=== PATIENT | male | born 1945 | race Caucasian/White ===

== ENCOUNTER → 2017-01-05 | Day surgery (SDC) | payer MEDICARE ==
[~2017-01-05] VITALS: Ht 177.8 cm; Wt 114.0 kg
[~2017-01-05] MED LIST: AMIO200T PO; AMLO10TA2 PO; ASPI81CH37 CHEW; ATOR1TAB18 PO; BRIL90TA PO; CILO100T PO; FISHCAP4 PO; GABA300C5 PO; GLIM2TAB PO; ISOS20TA PO; METO-309 PO; NITR1SUB3 SL; OMEP20TA PO; OXYB5TAB10 PO; PROPOFOL 200 MG/20 ML AMP IV ONE; RAMI2.5C PO; RANO500 PO; SITA1TAB2 PO; SODIUM CHLORID 0.9% 500 ML INJ 500 ML IV ONE; SODIUM CHLORIDE 0.9% FLUSH 10 ML FLUSH IVF PRN
[2017-01-05 11:57] VITALS: BP 128/75; PULSE 54; RESP 18; TEMP 97.3; O2SAT 97
--- NOTE | 2017-01-05 13:08 | PD ---
HPI Chief Complaint: GI Complaint Time Seen by Provider: 12:05 Travel History International Travel<30 days: No Contact w/Intl Traveler<30days: No Traveled to known affect area: No History of Present Illness HPI 71 y/o male presents with unable to eat or drink after eating steak last night. He notes that given it was tough he didn't get small enough. He denies other complaints. He notes that 5 years ago he had this issue and had to have a scope and stretching. He denies a gi specialist here. quality is unable to keep down liquids. severity is worsening. duration since last night PFSH Past Medical History Hx Anticoagulant Therapy: Yes Cardiovascular Problems: Yes High Cholesterol: Yes Chest Pain: Yes Cerebrovascular Accident: Yes Coronary Artery Disease: Yes Diabetes: Yes Patient Takes Glucophage: No Diminished Hearing: No GERD: Yes Hypertension: Yes Medical other: Yes (kidney function decreased) Tetanus Vaccination: < 5 Years Influenza Vaccination: Yes Past Surgical History Appendectomy: Yes Cardiac Surgery: Yes (triple bypass, multiple stents, carotid endartectomy) Thoracic Surgery: Yes Tonsillectomy: Yes Other Surgery: Yes (femoral artery stents) Social History Alcohol Use: No Tobacco Use: No Substance Use: No Allergies-Medications (Allergen,Severity, Reaction): Coded Allergies: No Known Allergies (Unverified , 01/05/17) Reported Meds & Prescriptions Reported Meds & Active Scripts Active Reported Fish Oil + D3 (Fish Oil-Cholecalciferol) 1,200-1,000 Mg-Unit Cap 1 Cap PO DAILY Aspirin Low Dose (Aspirin) 81 Mg Chew 352 Mg CHEW DAILY Atorvastatin (Atorvastatin Calcium) 80 Mg Tab 80 Mg PO DAILY Januvia (Sitagliptin Phosphate) 100 Mg Tab 100 Mg PO DAILY Amiodarone (Amiodarone HCl) 200 Mg Tab 200 Mg PO DAILY Omeprazole 20 Mg Tab 20 Mg PO BID Gabapentin 300 Mg Cap 300 Mg PO DAILY Nitroglycerin SL (Nitroglycerin) 0.4 Mg Subl 0.4 Mg SL DIRECTED PRN ONE TABLET UNDER THE TONGUE NEEDED FOR CHEST PAIN, MAY REPEAT EVERY FIVE MINUTES FOR A TOTAL OF 3 DOSES OR CALL 911 IF NO RELIEF Brilinta (Ticagrelor) 90 Mg Tab 90 Mg PO BID Glimepiride 2 Mg Tab 2 Mg PO DAILY Take with breakfast or first main meal Cilostazol 100 Mg Tab 100 Mg PO BID Ranexa ER 12 HR (Ranolazine) 500 Mg Tab 500 Mg PO BID Amlodipine (Amlodipine Besylate) 10 Mg Tab 10 Mg PO DAILY Ramipril 2.5 Mg Cap 2.5 Mg PO DAILY Ditropan (Oxybutynin Chloride) 5 Mg Tab 5 Mg PO Q8HR Isosorbide Mononitrate 20 Mg Tab 30 Mg PO DAILY Take 2 doses 7 hours apart. Lopressor (Metoprolol Tartrate) 50 Mg Tab 50 Mg PO BID Review of Systems Except as stated in HPI: all other systems reviewed are Neg Physical Exam Narrative GENERAL: Well-nourished, well-developed patient. SKIN: Warm and dry. HEAD: Normocephalic and atraumatic. EYES: No injection or drainage. ENT: No nasal drainage noted. NECK: Supple, trachea midline. CARDIOVASCULAR: Regular rate and rhythm RESPIRATORY: no increased effort. No accessory muscle use. GASTROINTESTINAL: Abdomen soft, non-tender, nondistended. NEUROLOGICAL: Awake and alert. moves all extremities. Normal speech. Data Data Last Documented VS Vital Signs Date Time Temp Pulse Resp B/P (MAP) Pulse Ox O2 Delivery O2 Flow Rate FiO2 01/05/17 11:57 97.3 54 18 128/75 (92) 97 Orders Orders Iv Access Insert/Monitor (01/05/17 12:08) Electrocardiogram (01/05/17 12:23) Complete Blood Count With Diff (01/05/17 12:23) Prothrombin Time / Inr (Pt) (01/05/17 12:23) Act Partial Throm Time (Ptt) (01/05/17 12:23) Chest, Single Ap (01/05/17 12:23) Oximetry (01/05/17 12:23) Ecg Monitoring (01/05/17 12:23) Sodium Chloride 0.9% Flush (Ns Flush) (01/05/17 12:30) Basic Metabolic Panel (Bmp) (01/05/17 12:23) Diet Npo (01/05/17 Lunch) Consult Gastroenterology (01/05/17 ) Admit Order (Ed Use Only) (01/05/17 12:32) MDM Medical Decision Making Medical Screen Exam Complete: Yes Emergency Medical Condition: Yes Medical Record Reviewed: Yes (no records here) Interpretation(s) EKG is sinus bradycardia at 50, QTC 464, no STEMI criteria Differential Diagnosis food impaction, ulcer, stricture... Narrative Course patient with small sip of water after a couple seconds sips it back up and cant keep it down, will discuss with gi patient updated and agrees to scope, will check labs for preop Physician Communication Physician Communication dr rosa states will discuss with or about scope dr rosa states will take for scope at 2 and check labs, ekg, cxr for pre-op Diagnosis Primary Impression: Esophageal obstruction due to food impaction Tara Fernandez MD Jan 05, 2017 13:08
[2017-01-05 13:15] LABS: AUTOMATED NEUTROPHIL # 5.2 TH/MM3 (1.8-7.7); BASOPHIL % 0.4 % (0.0-2.0); EOSINOPHIL # 0.5 TH/MM3 (0-0.4); EOSINOPHIL % 5.5 % (0.0-4.0); HEMATOCRIT 41.7 % (39.0-51.0); HEMO FLAGS DIFF FINAL; LYMPH % 20.6 % (9.0-44.0); LYMPHOCYTE # 1.8 TH/MM3 (1.0-4.8); MEAN CELL VOLUME 88.8 FL (80.0-100.0); MEAN CORPUSCULAR HEMOGLOBIN 30.1 PG (27.0-34.0); MEAN CORPUSCULAR HGB CONC 33.9 % (32.0-36.0); MONO % 12.3 % (0.0-8.0); NEUT % 61.2 % (16.0-70.0); PLATELET COUNT 229 TH/MM3 (150-450); RED BLOOD COUNT 4.69 MIL/MM3 (4.50-5.90); RED CELL DISTRIBUTION WIDTH 13.3 % (11.6-17.2); WHITE BLOOD COUNT 8.6 TH/MM3 (4.0-11.0)
[2017-01-05 13:24] LABS: POTASSIUM 4.6 MEQ/L (3.5-5.1)
--- NOTE | 2017-01-05 13:26 | RADRPT ---
EXAM DATE/TIME: 01/05/2017 13:13 [facility] COMPARISON: No previous studies available for comparison. INDICATIONS : Chest pain, while eating last night food got stuck. MEDICAL HISTORY : Hypertension. Cardiovascular disease. Diabetes mellitus type II. GERD SURGICAL HISTORY : CABG. Carotid endarterectomy. Coronary artery stent. esophageal dilatation ENCOUNTER: Initial ACUITY: 2 days PAIN SCORE: 3/10 LOCATION: Bilateral chest FINDINGS: Cardiac silhouette is mildly enlarged. There is mild central vascular congestion. No evidence of alve olar consolidation or significant effusion. CONCLUSION: Mild cardiac enlargement and vascular congestion Ady Orozco MD on January 05, 2017 at 13:23 Board Certified Radiologist. This report was verified electronically.
[2017-01-05 13:38] VITALS: O2SAT 97
[2017-01-05 13:41] VITALS: BP 184/95; PULSE 58; RESP 18; TEMP 97.8; O2SAT 98
[2017-01-05 14:20] LABS: APTT (PATIENT) 25.5 SEC (24.3-30.1); PROTHROMBIN TIME - PATIENT 10.7 SEC (9.8-11.6)
--- NOTE | 2017-01-05 15:07 | GIPROC ---
[facility] [address] [place] [address], [id number] EGD PROCEDURE REPORT EXAM DATE: 01/05/2017 PATIENT NAME: Manolo Kaur MR #: [id number] BIRTHDATE: 1945 ATTENDING: Lg Bah MD ORDER #: [id number] KINDERGARTNER: oJsi Wells RN STATUS: outpatient INDICATIONS: The patient is a 71 yr old male here for an EGD due to dysphagia and foreign body removal from esophagus PROCEDURE PERFORMED: EGD w/ fb removal MEDICATIONS: None and Per Anesthesia. TOPICAL ANESTHETIC: CONSENT: The patient understands the risks and benefits of the procedure and understands that these risks include, but are not limited to: sedation, allergic reaction, infection, perforation and/or bleeding. Alternative means of evaluation and treatment include, among others: physical exam, x-rays, and/or surgical intervention. The patient elects to proceed with this endoscopic procedure. medical equipment was checked for proper function. Hand hygiene and appropriate measures for infection prevention was taken. After the risks, benefits and alternatives of the procedure were thoroughly explained, Informed consent was verified, confirmed and timeout was successfully executed by the treatment team. The patient was anesthetized with topical anesthesia and the Pentax [id number] endoscope was introduced through the mouth and advanced to the second portion of the duodenum. Retroflexed views revealed no abnormalities The gastroscope was then slowly withdrawn and removed. ESOPHAGUS: There was LA Class B esophagitis noted. Esophagus full of food. Distal tightening. Food removed through the mouth and pushed into the stomach. STOMACH: There was erythematous moderate gastritis in the gastric antrum. DUODENUM: The duodenal mucosa appeared normal. ADVERSE EVENTS: There were no complications. IMPRESSIONS: 1. There was LA Class B esophagitis noted 2. There was erythematous gastritis in the gastric antrum 3. Normal duodenal mucosa 4. Retroflexed views revealed no abnormalities RECOMMENDATIONS: 1. Anti-reflux regimen 2. Start PPI 3. Avoid NSAIDS 4. Full liquid diet x 24 hours. [id number] OTC daily. PATIENT CONDITION: stable DISPOSITION: Home REPEAT EXAM: Return 3 months EGD with dilatation Lg Bah MD eSigned: Lg Bah MD 01/05/2017 3:07 PM cc: PATIENT NAME: Manolo Kaur Dorian MR#: [id number]
[2017-01-05 15:17] VITALS: TEMP 97.5
[2017-01-05 15:45] VITALS: BP 142/83; PULSE 60; RESP 16; O2SAT 97
--- NOTE | 2017-01-06 08:35 | MB ---
cc: RAF PEREZ M.D., CINDY M. MD DATE OF CONSULTATION 01/05/[address] Tara Fernandez. REASON FOR CONSULTATION Dysphagia, esophageal foreign body. HISTORY The patient states that he was eating steak earlier and this got stuck in his esophagus. The patient states that he is unable to swallow any liquids since yesterday. He says this [place] about [place] which time he had an endoscopy and he was told he had a tightening in the lower esophagus. He states that the steak was not well cooked and he ate it quickly. PAST MEDICAL HISTORY 1. Coronary artery disease. 2. Elevated cholesterol. 3. Diabetes. 4. Reflux. 5. Kidney function tests. PAST SURGICAL HISTORY 1. Appendectomy. 2. Triple bypass. 3. Endarterectomy. 4. Tonsillectomy. 5. EGD in the past. SOCIAL HISTORY No tobacco, no alcohol. ALLERGIES NONE DOCUMENTED. MEDICATIONS Current medications: 1. Fish oil. 2. Atorvastatin. 3. Januvia. 4. Amiodarone. 5. Omeprazole. 6. Gabapentin. 7. Nitroglycerine. 8. Brilinta. 9. Glimepiride. 10. Ranexa. 11. Cilostazol. 12. Amlodipine. 13. . 14. Ditropan. 15. Isosorbide. 16. Lopressor. REVIEW OF SYSTEMS The patient unable to swallow at this time. He is spitting up sputum. PHYSICAL EXAMINATION GENERAL: Reveals a well-nourished man in no apparent distress. VITAL SIGNS: Stable. HEAD AND NECK: Anicteric sclerae. CHEST: Bilateral air entry. ABDOMEN: Obese. Soft and nontender. No hepatosplenomegaly. Bowel sounds are present. CENTRAL NERVOUS SYSTEM: Examination is nonfocal. RECTAL: Examination deferred at this time. LABORATORY DATA Labs reveal a white cell count of 8.6, hemoglobin 14.1, creatinine 1.60. INR is 1.0. IMPRESSION Esophageal foreign body, dysphagia. RECOMMENDATIONS EGD under general anesthesia planned today. Risks, limitations have been discussed with him in detail. Further recommendations to follow after the endoscopy. Leave n.p.o. at this time. The patient advised to chew his food well and drink plenty of liquid with the food. Thank you for this referral. MD CEE Thakkar /3:15 PM /8:28 AM
--- NOTE | 2017-01-06 13:41 | EKG ---
Date Performed: 01/05/2017 Time Performed: 12:30:16 PTAGE: 71 years EKG: SINUS BRADYCARDIA INCOMPLETE RIGHT BUNDLE BRANCH BLOCK PROLONGED QT INTERVAL ABNORMAL ECG NO PREVIOUS TRACING DOCTOR: Alfred Graf Interpretating Date/Time 01/06/2017 13:38:11
== END | disposition home or self-care (01) ==
LOC: PHED 11:43 → PHSDC 12:32
PROVIDERS: ATTEND Internal Medicine Gastroenterology
DX: T18.128A Food in esophagus causing other injury, initial encounter (principal); X58.XXXA Exposure to other specified factors, initial encounter; K20.9 Esophagitis, unspecified; K29.70 Gastritis, unspecified, without bleeding; R00.1 Bradycardia, unspecified; I45.10 Unspecified right bundle-branch block; I45.81 Long QT syndrome; I10 Essential (primary) hypertension; I25.10 Atherosclerotic heart disease of native coronary artery without angina pectoris; K21.9 Gastro-esophageal reflux disease without esophagitis; E11.9 Type 2 diabetes mellitus without complications; I51.7 Cardiomegaly; E78.00 Pure hypercholesterolemia, unspecified; Z95.1 Presence of aortocoronary bypass graft; Z95.5 Presence of coronary angioplasty implant and graft; Z79.84 Long term (current) use of oral hypoglycemic drugs; Z79.82 Long term (current) use of aspirin; Z79.899 Other long term (current) drug therapy
CPT/HCPCS: 71010; 80048; 85025; 85610; 85730; 93005; 99285

== ENCOUNTER 2017-05-16 23:22 | Emergency (ER) | payer MEDICARE ==
[~2017-05-16] VITALS: Ht 177.8 cm; Wt 121.3 kg
[~2017-05-16 23:22] MED LIST changes: -ASPI81CH37 CHEW; +ASPI81CH6 CHEW; -ATOR1TAB18 PO; +ATOR80TA45 PO; -OMEP20TA PO; +OMEP20TA93 PO; -OXYB5TAB10 PO; +OXYB5TAB8 PO; -PROPOFOL 200 MG/20 ML AMP IV ONE; -SODIUM CHLORID 0.9% 500 ML INJ 500 ML IV ONE; -SODIUM CHLORIDE 0.9% FLUSH 10 ML FLUSH IVF PRN
[2017-05-16 23:44] VITALS: BP 159/71; PULSE 75; RESP 22; TEMP 99; O2SAT 95
[2017-05-17] MEDS ORDERED: PANT40TA3 PO (00:10)
[2017-05-17] MEDS ORDERED: SODIUM CHLORIDE 0.9% FLUSH 10 ML FLUSH IVF PRN (01:15)
--- NOTE | 2017-05-17 01:20 | PD ---
HPI Chief Complaint: Respiratory Symptoms Time Seen by Provider: 01:10 Travel History International Travel<30 days: No Contact w/Intl Traveler<30days: No Traveled to known affect area: No History of Present Illness HPI The patient is a 72-year-old male that complains of cough and congestion for 3 weeks. He denies any fever. He does have shortness of breath and he does have wheezing. He does have diarrhea which is so bad he has to be careful when he coughs. He denies any nausea or vomiting. He does have a history of metformin controlled diabetes. He denies any chest pain. PFSH Past Medical History Hx Anticoagulant Therapy: Yes Cardiovascular Problems: Yes High Cholesterol: Yes Chest Pain: Yes Cerebrovascular Accident: Yes Coronary Artery Disease: Yes Diabetes: Yes Diminished Hearing: No GERD: Yes Hypertension: Yes Past Surgical History Appendectomy: Yes Cardiac Surgery: Yes (triple bypass, multiple stents, carotid endartectomy) Thoracic Surgery: Yes Tonsillectomy: Yes Other Surgery: Yes (femoral artery stents) Social History Alcohol Use: No Tobacco Use: No Substance Use: No Allergies-Medications (Allergen,Severity, Reaction): Coded Allergies: No Known Allergies (Unverified Adverse Reaction, Unknown, 05/16/17) Reported Meds & Prescriptions Reported Meds & Active Scripts Active Reported Fish Oil + D3 (Fish Oil-Cholecalciferol) 1,200-1,000 Mg-Unit Cap 1 Cap PO DAILY Aspirin Low Dose (Aspirin) 81 Mg Chew 352 Mg CHEW DAILY Atorvastatin (Atorvastatin Calcium) 80 Mg Tab 80 Mg PO DAILY Januvia (Sitagliptin Phosphate) 100 Mg Tab 100 Mg PO DAILY Amiodarone (Amiodarone HCl) 200 Mg Tab 200 Mg PO DAILY Omeprazole 20 Mg Tab 20 Mg PO BID Gabapentin 300 Mg Cap 300 Mg PO DAILY Nitroglycerin SL (Nitroglycerin) 0.4 Mg Subl 0.4 Mg SL DIRECTED PRN ONE TABLET UNDER THE TONGUE NEEDED FOR CHEST PAIN, MAY REPEAT EVERY FIVE MINUTES FOR A TOTAL OF 3 DOSES OR CALL 911 IF NO RELIEF Brilinta (Ticagrelor) 90 Mg Tab 90 Mg PO BID Glimepiride 2 Mg Tab 2 Mg PO DAILY Take with breakfast or first main meal Cilostazol 100 Mg Tab 100 Mg PO BID Ranexa ER 12 HR (Ranolazine) 500 Mg Tab 500 Mg PO BID Amlodipine (Amlodipine Besylate) 10 Mg Tab 10 Mg PO DAILY Ramipril 2.5 Mg Cap 2.5 Mg PO DAILY Ditropan (Oxybutynin Chloride) 5 Mg Tab 5 Mg PO Q8HR Isosorbide Mononitrate 20 Mg Tab 30 Mg PO DAILY Take 2 doses 7 hours apart. Lopressor (Metoprolol Tartrate) 50 Mg Tab 50 Mg PO BID Pantoprazole (Pantoprazole Sodium) 40 Mg Tab 40 Mg PO DAILY Review of Systems Except as stated in HPI: all other systems reviewed are Neg Physical Exam Narrative GENERAL: The patient is alert, oriented 3 and slight respiratory distress. His vital signs show blood pressure 129/71 but are otherwise normal. SKIN: Focused skin assessment warm/dry. HEAD: Atraumatic. Normocephalic. EYES: Pupils equal and round. No scleral icterus. No injection or drainage. ENT: No nasal bleeding or discharge. Mucous membranes pink and moist. NECK: Trachea midline. No JVD. CARDIOVASCULAR: Regular rate and rhythm. No murmur appreciated. RESPIRATORY: No accessory muscle use. Bilateral wheezes are heard in all lung west. Breath sounds equal bilaterally. GASTROINTESTINAL: Abdomen soft, non-tender, nondistended. Hepatic and splenic margins not palpable. MUSCULOSKELETAL: No obvious deformities. No clubbing. No cyanosis. No edema. NEUROLOGICAL: Awake and alert. No obvious cranial nerve deficits. Motor grossly within normal limits. Normal speech. PSYCHIATRIC: Appropriate mood and affect; insight and judgment normal. Data Data Last Documented VS Vital Signs Date Time Temp Pulse Resp B/P (MAP) Pulse Ox O2 Delivery O2 Flow Rate FiO2 05/17/17 01:33 18 95 Room Air 05/16/17 23:44 99.0 75 159/71 (100) Orders Orders B-Type Natriuretic Peptide (05/17/17 01:15) Complete Blood Count With Diff (05/17/17 01:15) Comprehensive Metabolic Panel (05/17/17 01:15) Magnesium (Mg) (05/17/17 01:15) Troponin I (05/17/17 01:15) Arterial Blood Gas (Abg) (05/17/17 01:15) Urinalysis - C+S If Indicated (05/17/17 01:15) Iv Access Insert/Monitor (05/17/17 01:15) Electrocardiogram (05/17/17 01:15) Ecg Monitoring (05/17/17 01:15) Oximetry (05/17/17 01:15) Oxygen Administration (05/17/17 01:15) Chest, Pa & Lat (05/17/17 01:15) Sodium Chloride 0.9% Flush (Ns Flush) (05/17/17 01:15) Methylprednisolone So Succ Inj (Solumedr (05/17/17 01:30) Albuterol-Ipratropium Neb (Duoneb Neb) (05/17/17 01:30) Labs Laboratory Tests Test 05/17/17 01:31 05/17/17 01:33 05/17/17 02:54 White Blood Count 4.9 TH/MM3 Red Blood Count 4.23 MIL/MM3 Hemoglobin 13.0 GM/DL Hematocrit 39.4 % Mean Corpuscular Volume 93.2 FL Mean Corpuscular Hemoglobin 30.7 PG Mean Corpuscular Hemoglobin Concent 32.9 % Red Cell Distribution Width 13.5 % Platelet Count 173 TH/MM3 Mean Platelet Volume 8.8 FL Neutrophils (%) (Auto) 55.7 % Lymphocytes (%) (Auto) 29.6 % Monocytes (%) (Auto) 10.7 % Eosinophils (%) (Auto) 3.8 % Basophils (%) (Auto) 0.2 % Neutrophils # (Auto) 2.7 TH/MM3 Lymphocytes # (Auto) 1.5 TH/MM3 Monocytes # (Auto) 0.5 TH/MM3 Eosinophils # (Auto) 0.2 TH/MM3 Basophils # (Auto) 0.0 TH/MM3 CBC Comment DIFF FINAL Differential Comment Blood Urea Nitrogen 28 MG/DL Creatinine 1.60 MG/DL Random Glucose 156 MG/DL Total Protein 7.2 GM/DL Albumin 3.4 GM/DL Calcium Level 8.4 MG/DL Magnesium Level 2.0 MG/DL Alkaline Phosphatase 143 U/L Aspartate Amino Transf (AST/SGOT) 49 U/L Alanine Aminotransferase (ALT/SGPT) 87 U/L Total Bilirubin 0.5 MG/DL Sodium Level 140 MEQ/L Potassium Level 4.2 MEQ/L Chloride Level 107 MEQ/L Carbon Dioxide Level 21.5 MEQ/L Anion Gap 12 MEQ/L Estimat Glomerular Filtration Rate 43 ML/MIN Troponin I LESS THAN 0.02 NG/ML B-Type Natriuretic Peptide 46 PG/ML Blood Gas Puncture Site RT BRACHIAL Blood Gas Patient Temperature 98.6 Blood Gas HCO3 22 mmol/L Blood Gas Base Excess -2.4 mmol/L Blood Gas Oxygen Saturation 94 % Arterial Blood pH 7.41 Arterial Blood Partial Pressure CO2 35 mmHG Arterial Blood Partial Pressure O2 82 mmHG Arterial Blood Oxygen Content 17.4 Vol % Arterial Blood Carboxyhemoglobin 0.0 % Arterial Blood Methemoglobin 0.8 % Blood Gas Hemoglobin 13.2 G/DL Oxygen Delivery Device ROOM AIR Blood Gas Inspired Oxygen 21 % Urine Color YELLOW Urine Turbidity CLEAR Urine pH 5.5 Urine Specific [place] GREATER THAN 1.035 Urine Protein NEG mg/dL Urine Glucose (UA) NEG mg/dL Urine Ketones NEG mg/dL Urine Occult Blood NEG Urine Nitrite NEG Urine Bilirubin NEG Urine Leukocyte Esterase NEG Urine WBC 0-2 /hpf Urine Squamous Epithelial Cells 0-5 /hpf Urine Mucus OCC /lpf Microscopic Urinalysis Comment CULT NOT INDICATED MDM Medical Decision Making Medical Screen Exam Complete: Yes Emergency Medical Condition: Yes Medical Record Reviewed: Yes Interpretation(s) The PA and lateral chest x-ray shows no acute abnormality. Numerous broken sternal wires are noted. The CBC is normal. The blood gases show pH 7.41, CO2 35, PO2 82 with O2 saturation 94%. The complete metabolic profile shows a BUN of 28, creatinine 1.6, GFR 43, glucose 156, AST of 49, ALT of 87 and alkaline phosphatase 143 but the rest of the complete metabolic profile is normal. The troponin I and BNP are normal. The urine shows specific gravity greater than 1.035 but is otherwise normal and culture is not indicated. The EKG shows sinus rhythm with a rate of [address] elevation or depression. Differential Diagnosis Acute coronary syndrome-unlikely, congestive heart failure-unlikely, flu syndrome, bronchitis with bronchospasm, pneumonia, hypoxemia Narrative Course The patient has bronchitis with bronchospasm. He got good relief with the DuoNeb treatments. He will be given an albuterol HFA as well as 5 days of prednisone. He needs to follow-up with his primary care physician this week. Diagnosis Primary Impression: Bronchitis with bronchospasm Med/Other Pt SpecificInfo: Prescription(s) given Disposition: DISCHARGE HOME Condition: Stable Parmjit Gutierrez MD May 17, 2017 01:20
[2017-05-17] MEDS ORDERED: methylPREDNISolone SOD SUCC 125 MG/2 ML VIAL IV PUSH ONE (01:30)
[2017-05-17 01:33] VITALS: RESP 18; O2SAT 95
[2017-05-17] MEDS: RESP: ALBUTEROL 2.5 MG/IPRATROPIUM 0.5 MG NEB (SCH) INH ×3 (01:34→02:01)
[2017-05-17 01:38] LABS: AUTOMATED NEUTROPHIL # 2.7 TH/MM3 (1.8-7.7); BASOPHIL % 0.2 % (0.0-2.0); EOSINOPHIL # 0.2 TH/MM3 (0-0.4); EOSINOPHIL % 3.8 % (0.0-4.0); HEMATOCRIT 39.4 % (39.0-51.0); LYMPH % 29.6 % (9.0-44.0); LYMPHOCYTE # 1.5 TH/MM3 (1.0-4.8); MEAN CELL VOLUME 93.2 FL (80.0-100.0); MEAN CORPUSCULAR HEMOGLOBIN 30.7 PG (27.0-34.0); MEAN CORPUSCULAR HGB CONC 32.9 % (32.0-36.0); MEAN PLATELET VOLUME 8.8 FL (7.0-11.0); MONO % 10.7 % (0.0-8.0); MONOCYTE # 0.5 TH/MM3 (0-0.9); NEUT % 55.7 % (16.0-70.0); PLATELET COUNT 173 TH/MM3 (150-450); RED BLOOD COUNT 4.23 MIL/MM3 (4.50-5.90); RED CELL DISTRIBUTION WIDTH 13.5 % (11.6-17.2); WHITE BLOOD COUNT 4.9 TH/MM3 (4.0-11.0)
[2017-05-17 01:49] LABS: CHLORIDE 107 MEQ/L (98-107); SODIUM (NA) 140 MEQ/L (136-145)
--- NOTE | 2017-05-17 01:49 | RADRPT ---
EXAM DATE/TIME: 05/17/2017 01:20 [facility] COMPARISON: No previous studies available for comparison. INDICATIONS : Cough and congestion. MEDICAL HISTORY : Hypertension. Cardiovascular disease. Diabetes mellitus type II. GERD. SURGICAL HISTORY : CABG. Carotid endarterectomy. Coronary artery stent. esophageal dilatation ENCOUNTER: Initial ACUITY: 3 weeks PAIN SCORE: 0/10 LOCATION: Bilateral chest FINDINGS: The heart size is normal. The lungs are grossly clear. No effusion is seen. The patient is status pos t sternotomy. The sternal wires are all broken. Wires are seen in the more superficial soft tissues o es the sternum. There are old right-sided rib fracture seen at the third and fourth right ribs. CONCLUSION: 1. No acute abnormality seen. 2. Numerous broken sternal wires. Ady Aguirre MD on May 17, 2017 at 1:46 Board Certified Radiologist. This report was verified electronically.
[2017-05-17 01:53] LABS: CALCIUM 8.4 MG/DL (8.5-10.1)
[2017-05-17 01:54] LABS: ALBUMIN 3.4 GM/DL (3.4-5.0); BICARBONATE 21.5 MEQ/L (21.0-32.0); BLOOD UREA NITROGEN 28 MG/DL (7-18); GLUCOSE,RANDOM 156 MG/DL (74-106)
[2017-05-17 01:57] LABS: ALT (GPT) 87 U/L (12-78); AST (GOT) 49 U/L (15-37); GLOMERULAR FILTRATION RATE 43 ML/MIN (>89)
[2017-05-17 01:59] LABS: TOTAL BILIRUBIN ADULT 0.5 MG/DL (0.2-1.0); TOTAL PROTEIN 7.2 GM/DL (6.4-8.2)
[2017-05-17 02:00] LABS: ALKALINE PHOSPHATASE 143 U/L (45-117)
[2017-05-17 02:02] LABS: TROPONIN I LESS THAN 0.02 NG/ML (0.02-0.05)
[2017-05-17 03:01] LABS: BILIRUBIN, URINE NEG (NEG); BLOOD, URINE NEG (NEG); GLUCOSE,URINE NEG (NEG); KETONE, URINE NEG (NEG); NITRITE,URINE NEG (NEG); PH, URINE 5.5 (5.0-8.5); URINE LEUKOCYTE ESTERASE NEG (NEG)
[2017-05-17 03:08] LABS: URINE COLOR YELLOW (YELLW/STRAW)
[2017-05-17 03:09] LABS: MUCUS URINE OCC /lpf (OCC); SQUAMOUS EPITHELIAL CELL URINE 0-5 /hpf (0-5)
[2017-05-17 03:10] LABS: WBC, URINE 0-2 /hpf (0-5)
[2017-05-17] MEDS ORDERED: PRED50 PO (03:58)
[2017-05-17] MEDS ORDERED: ALBUAER3 INH (03:58)
[2017-05-17 04:10] VITALS: BP 127/64; PULSE 78; RESP 16; O2SAT 95
--- NOTE | 2017-05-17 14:59 | EKG ---
Date Performed: 05/17/2017 Time Performed: 02:10:24 PTAGE: 72 years EKG: Sinus rhythm INCOMPLETE RIGHT BUNDLE BRANCH BLOCK POSSIBLE ANTERIOR MYOCARDIAL INFARCTION ABNORMAL ECG PREVIOUS TRACING : 01/05/2017 12.30 Compared to prior study, poor R-wave progression is more no ticeable. Clinical correlation is recommended. DOCTOR: Bubba Garcia Interpretating Date/Time 05/17/2017 14:57:52
== END 2017-05-17 04:23 | disposition home or self-care (01) ==
LOC: PHED 23:22
DX: J20.9 Acute bronchitis, unspecified (principal); R94.31 Abnormal electrocardiogram [ECG] [EKG]; I25.10 Atherosclerotic heart disease of native coronary artery without angina pectoris; E78.00 Pure hypercholesterolemia, unspecified; E11.9 Type 2 diabetes mellitus without complications; K21.9 Gastro-esophageal reflux disease without esophagitis; I10 Essential (primary) hypertension; Z79.84 Long term (current) use of oral hypoglycemic drugs; Z79.01 Long term (current) use of anticoagulants
CPT/HCPCS: 36600; 71046; 80053; 81001; 82805; 83735; 83880; 84484; 85025; 93005; 94640; 94664; 96374; 99285; J2930

== ENCOUNTER → 2017-07-21 | Outpatient (CLI) | payer MEDICARE ==
[~2017-07-21] VITALS: Ht 177.8 cm; Wt 118.9 kg
[~2017-07-21] MED LIST changes: +ALBUAER3 INH; +CHLORHEXIDINE GLUCONATE 2 % 1 PACK (2 CLOTHS) TOPICAL PRN; +LACTATED RINGER'S 1000 ML IV PRN; +METOPROLOL TARTRATE 25 MG TAB PO PRN; -OMEP20TA93 PO; +PANT40TA3 PO; +POVIDONE IODINE 5% (ANTISEPSIS KIT) 4 APPLICATIONS EACH NARE PRN; +PROPOFOL 200 MG/20 ML AMP ONE; +SODIUM CHLORID 0.9% 500 ML IV PRN
--- NOTE | 2017-07-21 12:26 | GIPROC ---
[facility] [address] [facility]. [facility], [address] COLONOSCOPY PROCEDURE REPORT EXAM DATE: 07/21/2017 PATIENT NAME: Manolo Kaur MR #: [id number] BIRTHDATE: 1945 ENDOSCOPIST: Nichelle Pabon MD ORDER #: [id number] [facility] SPECIALIST: Kain Doan and Mari Willson STATUS: outpatient INDICATIONS: The patient is a 72 yr old male here for a colonoscopy due to history of colon polyps PROCEDURE PERFORMED: Colonoscopy with ablation Colonoscopy with polypectomy MEDICATIONS: Per Anesthesia and None. PREP QUALITY: fair PREP TYPE:Other: ESTIMATED BLOOD LOSS: None CONSENT: The patient understands the risks and benefits of the procedure and understands that these risks include, but are not limited to: sedation, allergic reaction, infection, perforation and/or bleeding. Alternative means of evaluation and treatment include, among others: physical exam, x-rays, and/or surgical intervention. The patient elects to proceed with this endoscopic procedure. medical equipment was checked for proper function. Hand hygiene and appropriate measures for infection prevention was taken. After the risks, benefits and alternatives of the procedure were thoroughly explained, Informed consent was verified, confirmed and timeout was successfully executed by the treatment team. A digital exam revealed external hemorrhoids The Pentax [id number] endoscope was introduced through the anus and advanced to the cecum, which was identified by both the appendix and ileocecal valve. The instrument was then slowly withdrawn as the colon was fully examined. COLON FINDINGS: Diverticulosis sigmoid,descending polyp sessile ascending colon-8 mm-hot snare polypectomy with complete removal polyp descending sessiletwo-5 mm each hot snare polypectomy with complete removal polyp sessile rectosigmoid-8 mm-hot snare polypectomy with complete removal multiple diminutive polyps in rectum-8 -s/p ablation using tip of snare 2. Retroflexed views revealed internal hemorrhoids 3. Retroflexed views revealed small internal hemorrhoids 4. Revealed external hemorrhoids RECOMMENDATIONS: RECALL: Nichelle Pabon MD eSigned: Nichelle Pabon MD 07/21/2017 12:26 PM cc: DOCUMENT ADDENDUM eSigned: Nichelle Pabon MD 07/21/2017 12:30 PM Reason for addendum: [ ] Correction of inaccurate information [ ] Recently acquired lab/pathology results [x] Additional information Comments: Reccomendation resume diet resume anticoagulation await pathology report high fiber diet fiber supplements Recall colonoscopy 3 years unless indicated otherwise PATIENT NAME: Manolo Kaur MR#: [id number]
--- NOTE | 2017-07-21 12:29 | GIPROC ---
[facility] [address] [facility]. [facility], [id number] EGD PROCEDURE REPORT EXAM DATE: 07/21/2017 PATIENT NAME: Manolo Kaur MR #: [id number] BIRTHDATE: 1945 ATTENDING: Nichelle Pabon MD ORDER #: [id number] TOOLER: Kain Doan and Mari Willson STATUS: outpatient INDICATIONS: The patient is a 72 yr old male here for an EGD due to dysphagia, history of Juarez's PROCEDURE PERFORMED: EGD w/ biopsy MEDICATIONS: Per Anesthesia and None. TOPICAL ANESTHETIC: CONSENT: The patient understands the risks and benefits of the procedure and understands that these risks include, but are not limited to: sedation, allergic reaction, infection, perforation and/or bleeding. Alternative means of evaluation and treatment include, among others: physical exam, x-rays, and/or surgical intervention. The patient elects to proceed with this endoscopic procedure. medical equipment was checked for proper function. Hand hygiene and appropriate measures for infection prevention was taken. After the risks, benefits and alternatives of the procedure were thoroughly explained, Informed consent was verified, confirmed and timeout was successfully executed by the treatment team. The patient was anesthetized with topical anesthesia and the EC-[id number] (Pedi C) endoscope was introduced through the mouth and advanced to the second portion of the duodenum. Retroflexed views revealed a hiatal hernia The gastroscope was then slowly withdrawn and removed. 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 ADVERSE EVENTS: There were no complications. IMPRESSIONS: 1. 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 Retroflexed views revealed a hiatal hernia RECOMMENDATIONS: 1. Await biopsy results. Biopsy results will not be ready for 7-10 days. If you don't hear from us in two weeks, call our office for biopsy results. 2. Anti-reflux regimen 3. Continue PPI 4. Dilatations PRN PATIENT CONDITION: stable DISPOSITION: Home REPEAT EXAM: Return 2 years EGD Nichelle Bratu MD eSigned: Nichelle Pabon MD 07/21/2017 12:29 PM cc: PATIENT NAME: Manolo Kaur MR#: [id number]
[2017-07-21 13:00] VITALS: BP 137/77; PULSE 65; RESP 16; TEMP 96.5; O2SAT 100
== END ==
LOC: HEND 08:10
PROVIDERS: ATTEND Specialist
DX: Z12.11 Encounter for screening for malignant neoplasm of colon (principal); Z86.010 Personal history of colon polyps; K64.4 Residual hemorrhoidal skin tags; K57.30 Diverticulosis of large intestine without perforation or abscess without bleeding; D12.2 Benign neoplasm of ascending colon; D12.4 Benign neoplasm of descending colon; D12.7 Benign neoplasm of rectosigmoid junction; K62.1 Rectal polyp; K64.8 Other hemorrhoids; R13.10 Dysphagia, unspecified; K22.70 Barrett's esophagus without dysplasia; K44.9 Diaphragmatic hernia without obstruction or gangrene; K29.70 Gastritis, unspecified, without bleeding; K22.2 Esophageal obstruction
CPT/HCPCS: 00813; 43239; 43248; 45385; 45388; 88305; 88312; J7120

== ENCOUNTER → 2017-08-30 | Outpatient (CLI) | payer MEDICARE ==
[~2017-08-30] MED LIST changes: -CHLORHEXIDINE GLUCONATE 2 % 1 PACK (2 CLOTHS) TOPICAL PRN; -LACTATED RINGER'S 1000 ML IV PRN; -METOPROLOL TARTRATE 25 MG TAB PO PRN; -POVIDONE IODINE 5% (ANTISEPSIS KIT) 4 APPLICATIONS EACH NARE PRN; -PROPOFOL 200 MG/20 ML AMP ONE; -SODIUM CHLORID 0.9% 500 ML IV PRN
--- NOTE | 2017-08-31 11:03 | RSPPFT ---
DATE OF PROCEDURE: 08/30/17 COMMENTS: Spirometry shows FVC of 2.8 at 74% of predicted, FEV1 of 2.2 at 75%, FEV1/FVC ratio is normal. Flow is normal at FEF 25, FEF 50 and FEF 25-75. There is no response after bronchodilator treatment. Lung volumes show residual volume is normal. TLC is normal. Diffusion capacity is decreased. Flow volume loop indicates a normal pattern. Room air arterial blood gases show pH of 7.42, PCO2 of 36, PO2 of 90, BiCarb of 22 and Saturation at 95%. IMPRESSION: 1. Normal spirometry. 2. No response after bronchodilator treatment. 3. Normal lung volumes. 4. Mildy decreased diffusion capacity. 5. Blood gases show normal oxygenation on room air.
== END ==
LOC: PHRSP 09:15
PROVIDERS: ATTEND Specialist
DX: J44.9 Chronic obstructive pulmonary disease, unspecified (principal)
CPT/HCPCS: 36600; 82805; 94060; 94726; 94729